=== PATIENT | female | born 1965 | race Caucasian/White ===

== ENCOUNTER 2022-04-20 07:21 | Outpatient (CLI) | payer BC, SELFPAY ==
[2022-04-20 07:49] LABS: Basophils Absolute Auto 0.09 K/uL (0.00-0.30); Basophils Percent Auto 1.2 % (0.0-3.0); Eosinophils Absolute Auto 0.21 K/uL (0.00-0.50); Eosinophils Percent Auto 2.8 % (0.0-7.0); Hematocrit 41.2 % (33.0-51.0); Hemoglobin* 13.7 gm/dL (12.0-16.0); Immature Granulocytes Abs Auto 0.01 K/uL (0.00-0.30); Immature Granulocytes Pct Auto 0.1 %; Lymphocytes Percent Auto 28.2 % (20-44); Mean Corpuscular HGB Conc 33 gm/dL (32-36); Mean Corpuscular Hemoglobin 31 pg (26-34); Mean Corpuscular Volume 94 fL (80-100); Monocytes Absolute Auto 0.53 K/UL (0.00-0.90); Neutrophils Absolute Auto 4.61 K/uL (1.7-7.0); Neutrophils Percent Auto 60.7 % (42.0-72.0); Platelet Count* 135 K/uL (140-440); RDW Coefficient of Variation % 13.9 % (11.5-15.5); Red Blood Count 4.37 m/uL (4.00-5.20); White Blood Count* 7.59 K/uL (4.50-11.00)
[2022-04-20 08:32] LABS: Slide Review Reflex No
== END 2022-04-20 07:22 | disposition home or self-care (01) ==
LOC: NFLDREF 07:23
PROVIDERS: PCP Family Medicine; Visit Provider Family Medicine
DX: D69.6 Thrombocytopenia, unspecified (principal); F41.9 Anxiety disorder, unspecified
CPT/HCPCS: 84443; 85025

== ENCOUNTER 2022-05-25 14:09 | Outpatient (CLI) | payer BC, SELFPAY ==
--- OUTSIDE RECORDS SUMMARY | 2022-05-25 14:12 | XMS_ITS | Clinical Summary ---
:1965 Author Organization [employer] [address] [employer] Organization [facility] [place] [address] Care Team Providers Name Role Phone Satish Linrudy Primary Care Provider Unavailable Allergies Active Allergy Reactions Severity Noted Date Comments Bee Pollen Anaphylaxis uses mounika kit Phenobarbital Other - Describe In Comment 10/04/2018 Almost as a baby Field Medications Medication Sig Dispensed Refills Start Date End Date Status EPINEPHrine Inject 0.3 mg 2 Each 0 05/25/2017 Act alida (EPIPEN) 0.3 mg/0.3 intramuscular one mL time if needed for injectionIndication Allergic Reaction. s: Bee sting allergy busPIRone (BUSPAR) Take 1 tablet by 60 tablet 2 06/29/2018 Active 10 mg mouth 2 times daily. tabletIndications: Will call when needs Anxiety this. Note dose change busPIRone (BUSPAR) TK 1 T PO BID 3 08/09/2018 Active 5 mg tablet Active Problems No known active problems Encounters Date Type Specialty Care Team Description 04/23/2022 Lab Requisition Kathy Polk MD from Last 3 Months Immunizations Name Administration Dates Next Due Influenza, IIV3 (Age >=3 years) 05/03/2012, 04/30/2011, 11/2009 Influenza, IIV4 05/20/2016, 05/14/2015, 05/02/2014 Influenza,LAIV4 Live Intranasal (Flumist) 05/04/2013 Tdap 01/22/2009 Zoster (Zostavax-ZVL, live) 05/14/2015 Family History Medical History Relation Name Comments Cancer Father several melanoma s removed Cancer-breast Maternal Grandmother older Diabetes Mother Melanoma Other nephew paternal side Cancer-breast Sister diagnosed close to age 50 Relation Name Status Comments Father (Age 91) Maternal Grandmother Mother Other nephew Alive Sister Social History Tobacco Use Types Packs/Day Years Used Date Former Smoker Quit: 07/26/19 06 Smokeless Tobacco: Never Used Tobacco Cessation: Counseling Given: Yes Comments: quit in 2005 Alcohol Use Standard Drinks/Week Comments Yes 0 (1 standard drink = 0.6 oz pure alcoho l) one glass of red wine daily Alcohol Habits Answer Date Recorded How often do you have a drink containing Not asked alcohol? How many drinks containing alcohol do you Not asked have on a typical day when you are drinking? How often do you have six or more drinks on Not asked one occasion? 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 Respiratory Rate - - Oxygen Saturation 96% 10/04/2018 3:35 PM CDT Inhaled Oxygen Concentration - - Weight 68 kg (150 lb) 10/04/2018 3:35 PM CDT Height 169.5 cm (5' 6.73) 09/19/2018 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 Body Mass Index 23.68 09/19/2018 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 Plan of Treatment Health Maintenance Due Date Last Done Comments COVID-19 vaccine series (#1) 1965 Zoster (shingles) series for age 1207/09/2015 05/14/2015 50+ (2 of 3) Tetanus booster 01/22/2019 01/22/2009 Depression screening for age 12+ 05/31/2019 05/31/2018, 12/2017, 05/31/2018, Additional history exists Mammogram for age 45-75 05/31/2019 05/31/2018, 05/25/2017, 05/14/2015, Additional history exists BMI (ht and wt on same day) for 09/19/2019 09/19/2018, 08/26, age 18+ 09/05/2018, Additional history exists Influenza for age 50-64 03/26/2022 05/20/2016, 05/14/2015, 05/02/2014, Additional history exists Lipids for age 45-75 05/31/2023 05/31/2018, 05/25/2017, 05/22/2016, Additional history exists Pap test for age 21-65 04/23/2025 04/23/2022, 04/23/2022, 05/25/2017, Additional history exists Colonoscopy through age 75 06/03/2025 06/03/2015, 5 Tdap Completed 01/22/2009 Hepatitis C screening for age Completed 05/18/2015 18-79 Procedures Procedure Name Priority Date/Time Associated Diagnosis Comme nts LAB TRACKING EVENT Routine 04/23/2022 8:11 AM CDT AUTOMOTIVE ELECTRICAL FITTER THIN PREP PAP Routine 04/23/2022 8:11 AM Resu lts for this SCREEN IMAGED CDT procedure are in the results section. HPV THIN PREP Routine 04/23/2022 8:11 AM Results for this CDT procedure are i n the results section. from Last 3 Months Results LAB TRACKING EVENT (04/23/2022 8:11 AM CDT) Specimen Anatomical Collection Method Collection Time Receive d Time (Source) Location / / Volume Laterality Other (Other) Client Collect / 04/23/2022 8:11 AM 03/27 7:49 Unknown CDT PM CDT Kathy Polk MD LAB BILL ONLY Performing Organization Address City/State/ZIP Code Phon e Number [facility] [address] [place] [address] LABORATORY-CENTRAL 2000 LABORATORY AUTOMOTIVE ELECTRICAL FITTER THIN PREP PAP SCREEN IMAGED (04/23/2022 8:11 AM CDT) Component Value Ref Test Analysis Performed At [facility] Range Method Time Signature Case Report Gynecologic Cytology Report ? Case: [id number] ? 05/12/2022 PAWEL Authorizing Provider: ??Kathy Winslow MD ??Collected: ? 04/23/2022 0811 ? 2:13 PM HEALTH Ordering Location: ? [facility] CENTRAL LAB ?Received: ?04/24/2022 0837 ? CDT [place] BORATORY-C First Screen: ? Cassandra, Leydi ? ENTRAL Rescreen: ?Malini Cantu ? LABORATORY Specimen: ?AUTOMOTIVE ELECTRICAL FITTER ThinPrep Vial Screening, Cervical/Vaginal ? INTERPRETATI NEGATIVE FOR (none) 05/12/2022 [facility] Monserrat ctronically ON/RESULT INTRAEPITHELIAL 2:13 PM HEALTH sign ed by EULALIA Cantu OR CDT LABORATORY-C Malini on MALIGNANCY (NIL) ENTRAL at LABORATORY 2:13 PM SPECIMEN Satisfactory for evaluation 05/12/2022 A LLINA ADEQUACY Endocervical component present 2:13 PM HEALTH Scant cellularity CDT LABORATORY-C ENTRAL LABORATORY HPV REQUEST HPV and PAP 05/12/2022 [facility] 2:13 PM HEALTH CDT LABORATORY-C ENTRAL LABORATORY Date of LMP 05/12/2022 [facility] 2:13 PM HEALTH CDT LABORATORY-C ENTRAL LABORATORY Comment: Post menopause Last Pap Result NIL 05/12/2022 2:13 PM [facility] A [facility] CDT LABORATORY-CENTRAL LABORATORY Abnormal Pap or [place] No 05/12/2022 2:13 PM [facility] Bx in last 5 years CDT LABORATORY- CENTRAL LABORATORY Menstrual Status Postmenopausal 05/12/2022 2:13 PM [facility] Additional 05/12/2022 2:13 PM [facility] Information T LABORATORY-CENTRAL LABORATORY Comment: Interpreted at [facility], Central Laboratory - [address], [place] [address] Automated Review Successful 05/12/2022 2:13 PM CDT [facility] LABORATORY-CENTRAL L ABORATORY Comment: Specimen processed successfully by automated physician vice president device, ThinPrep Imaging System, [employer] ANCILLARY TESTING HPV Ordered, 05/12/2022 2:13 PM [facility] AUTOMOTIVE ELECTRICAL FITTER Please see T LABORATORY-CENTRAL separate report LABORATORY Note The pap test is a 05/12/2022 2:13 PM [facility] screening T LABORATORY-CENTRAL technique, not a LABORATORY diagnostic procedure. It is used primarily to screen for squamous cancers and precursor lesions. Published studies have shown that it is subject to both false negative and false positive results. The pap test should not be used as the sole means to diagnose or exclude pre-malignant and malignant lesions. Specimen Anatomical Collection Method Collection Time Receive d Time (Source) Location / / Volume Laterality Other 04/23/2022 8:11 AM 2 8:37 (Cervical/Vagina CDT AM CDT l) Kathy Polk MD PATHOLOGY/CYTOLOGY Performing Organization Address City/State/ZIP Code Phon e Number [facility] [address] [place] [address] LABORATORY-CENTRAL 2000 LABORATORY HPV HIGH RISK (04/23/2022 8:11 AM CDT) Analysis Performed At Patho logist Time Signature TYPE 16 Negative Negative 04/27/2022 [facility] 3:15 PM CDT LABORATORY-REJI TRAL LABORATORY TYPE 18 Negative Negative 04/27/2022 [facility] 3:15 PM CDT LABORATORY-REJI TRAL LABORATORY OTHER HIGH Negative Negative 04/27/2022 [facility] RISK TYPES 3:15 PM CDT LABORATORY-REJI TRAL LABORATORY Specimen Anatomical Collection Method Collection Time Receive d Time (Source) Location / / Volume Laterality Other 04/23/2022 8:11 AM 2 8:37 (Cervical/Vagina CDT AM CDT l) Narrative [facility] LABORATORY-CENTRAL LABORAT ORY - 04/27/2022 3:15 PM CDT HPV types 16, 18, 31, 33, 35, 39, 45, 51, 52, 56, 58, 59, 66 and 68 DNA were undetectable or below the pre-set threshold. Methodology: Sánchez Henrik 4800 HPV Test Kathy Polk MD MICROBIOLOGY Performing Organization Address City/State/ZIP Code Phon e Number PAWEL [facility] [address] [place] [address] LABORATORY-CENTRAL 2000 LABORATORY from Last 3 Months Insurance Payer Benefit Plan / Subscriber ID Effective Dates Phone Addre ss Type Group MOT[employer] VE[employer]O [id number] 2017-Presen [address] [place] [address] WC WORKERS WC TRAVELERS [id number] 2020-Presen [address] [place] [address] BLUE CROSS BLUE CROSS OF [id number] 2015-Prese [address] [address] [place] [address] ([address]) [place] [phone] [employer] RUFF N (Work) [id number] [address] Motor Vehicle Self [address] ([address]) [place] [phone] [employer] (Work) [id number] [address] [employer] Self [address] [phone] [employer] [place]FF [place] (Work) [id number] Care Teams Global Project Manager Relationship Specialty Start Date End Date Pawel Lin PCP - General 09/05/18
--- NOTE | 2022-05-25 14:40 | CRLHL7_ITS ---
For Patients: As a result of the Cures Act, medical imaging exams and procedure reports are released immediately into your electronic medical record. You may view this report before your referring provider. If you have questions, please contact your health care provider. BILATERAL SCREENING MAMMOGRAM WITH COMPUTER-AIDED DETECTION AND TOMOSYNTHESIS TECHNIQUE: CC and MLO views were obtained. These mammographic images have been obtained using full-field digital technique. These mammographic images were interpreted with the benefit of computer-aided detection. Breast Tomosynthesis was used in this interpretation. COMPARISON FILM: 05/02/21, 08/01/19, 05/31/18. FINDINGS: There are scattered areas of fibroglandular density IMPRESSION: There is no radiographic evidence for malignancy. ASSESSMENT: BI-RADS Category 1: Negative RECOMMENDATION: Routine screening mammogram in 1 year. A lay language report of this examination will be provided to the patient. Erasto Gonzalez M.D. Diagnostic Radiologist [email or web address] GUANAKO/albert / be/Dictated by: Erasto Gonzalez MD @ 05/26/2022 8:50:00 AM (Electronically Signed)
== END 2022-05-25 14:10 | disposition home or self-care (01) ==
LOC: MAMMO 14:10
PROVIDERS: PCP Family Medicine; Visit Provider Family Medicine
DX: Z12.31 Encounter for screening mammogram for malignant neoplasm of breast (principal)
CPT/HCPCS: 77063; 77067

== ENCOUNTER 2023-04-22 07:35 | Outpatient (CLI) | payer BC, SELFPAY | END 2023-04-22 07:36 | disposition home or self-care (01) | LOC: NFLDREF 04-23 09:50 | PROVIDERS: PCP Family Medicine; Referring Provider Family Medicine; Visit Provider Family Medicine | DX: D69.6 Thrombocytopenia, unspecified (principal); Z13.6 Encounter for screening for cardiovascular disorders; Z13.1 Encounter for screening for diabetes mellitus | CPT/HCPCS: 80061; 82947 ==

== ENCOUNTER 2023-05-03 15:16 | Outpatient (CLI) | payer BC, SELFPAY ==
--- NOTE | 2023-05-03 15:00 | CRLHL7_ITS ---
For Patients: As a result of the Century Cures Act, medical imaging exams and procedure reports are released immediately into your electronic medical record. You may view this report before your referring provider. If you have questions, please contact your health care provider. INDICATION: THROMBOCYTOPENIA COMPARISON: none TECHNIQUE: Real time baugh scale imaging was performed of the spleen. FINDINGS: The spleen is normal in size and measures 7.9 x 2.6 cm. No splenic lesion or left upper quadrant ascites. IMPRESSION: No splenomegaly. Dictated by Erasto Gonzalez MD @ 05/05/2023 6:45:53 AM (Electronically Signed)
== END 2023-05-03 15:17 | disposition home or self-care (01) ==
LOC: US 15:17
PROVIDERS: PCP Family Medicine; Visit Provider Family Medicine
DX: D69.6 Thrombocytopenia, unspecified (principal)
CPT/HCPCS: 76705

== ENCOUNTER 2023-05-17 15:12 | Outpatient (CLI) | payer BC, SELFPAY ==
--- NOTE | 2023-05-17 15:00 | CRLHL7_ITS ---
For Patients: As a result of the Century Cures Act, medical imaging exams and procedure reports are released immediately into your electronic medical record. You may view this report before your referring provider. If you have questions, please contact your health care provider. INDICATION: THROMBOCYTOPENIA COMPARISON: 05/03/2023 TECHNIQUE: Real time baugh scale imaging and color Doppler analysis was performed of the right upper quadrant. FINDINGS: The patient`s liver is of normal size and has uniform echogenicity. There is a normal appearance of the hepatic IVC and proximal abdominal aorta. There is no evidence of ascites. The gallbladder is of normal size and there is an adherent echogenic focus associated with the nondependent gallbladder wall measuring 2 x 2 millimeters. The gallbladder wall measures 1.3 mm in thickness. The common bile duct is of normal size and measures 3.7 mm in diameter at the level of the kerwin hepatis. The visualized pancreas appears normal. There is no evidence of a stone or hydronephrosis within the right kidney. The right kidney measures 10.8 cm in length. IMPRESSION: 2 millimeter gallbladder polyp. Remainder normal. Dictated by Erasto Gonzalez MD @ 05/18/2023 9:00:12 AM (Electronically Signed)
== END 2023-05-17 15:13 | disposition home or self-care (01) ==
LOC: US 15:12
PROVIDERS: PCP Family Medicine; Visit Provider Internal Medicine Hematology & Oncology
DX: D69.6 Thrombocytopenia, unspecified (principal)
CPT/HCPCS: 76705

== ENCOUNTER 2023-05-26 15:10 | Outpatient (CLI) | payer BC, SELFPAY ==
--- NOTE | 2023-05-26 15:20 | CRLHL7_ITS ---
For Patients: As a result of the Century Cures Act, medical imaging exams and procedure reports are released immediately into your electronic medical record. You may view this report before your referring provider. If you have questions, please contact your health care provider. BILATERAL SCREENING MAMMOGRAM WITH COMPUTER-AIDED DETECTION AND TOMOSYNTHESIS TECHNIQUE: CC and MLO views were obtained. These mammographic images have been obtained using full-field digital technique. These mammographic images were interpreted with the benefit of computer-aided detection. Breast Tomosynthesis was used in this interpretation. COMPARISON FILM: 05/25/22, 05/02/21, 08/01/19. FINDINGS: There are scattered areas of fibroglandular density IMPRESSION: There is no radiographic evidence for malignancy. ASSESSMENT: BI-RADS Category 1: Negative RECOMMENDATION: Routine screening mammogram in 1 year. A lay language report of this examination will be provided to the patient. Erasto Gonzalez M.D. Diagnostic Radiologist [email or web address] JESSICA/Dictated by: Erasto Gonzalez MD @ 05/27/2023 11:53:00 AM (Electronically Signed)
== END 2023-05-26 15:11 | disposition home or self-care (01) ==
LOC: MAMMO 15:10
PROVIDERS: PCP Family Medicine; Visit Provider Family Medicine
DX: Z12.31 Encounter for screening mammogram for malignant neoplasm of breast (principal)
CPT/HCPCS: 77063; 77067

== ENCOUNTER 2023-06-15 07:43 | Outpatient (CLI) | payer BC, SELFPAY ==
[2023-06-15 07:56] VITALS: BP 152/70; PULSE 72; RESP 16; TEMP 36.9; O2SAT 98; BMI 23.2
[2023-06-15 09:05] VITALS: BP 116/64; PULSE 64; RESP 16; O2SAT 98
[2023-06-15 09:08] LABS: Basophils Absolute Auto 0.05 K/uL (0.00-0.30); Basophils Percent Auto 0.9 % (0.0-3.0); Eosinophils Absolute Auto 0.19 K/uL (0.00-0.50); Eosinophils Percent Auto 3.4 % (0.0-7.0); Hematocrit 44.2 % (33.0-51.0); Hemoglobin* 14.5 gm/dL (12.0-16.0); Immature Granulocytes Abs Auto 0.01 K/uL (0.00-0.30); Immature Granulocytes Pct Auto 0.2 %; Immature Reticulocyte Fraction 4.8 % (3.0-15.9); Lymphocytes Absolute Auto 1.81 K/uL (0.90-2.90); Mean Corpuscular HGB Conc 33 gm/dL (32-36); Mean Corpuscular Hemoglobin 31 pg (26-34); Mean Corpuscular Volume 96 fL (80-100); Monocytes Percent Auto 8.5 % (0.0-11.0); Neutrophils Absolute Auto 3.12 K/uL (1.7-7.0); Platelet Count* 84 K/uL (140-440); RDW Coefficient of Variation % 13.1 % (11.5-15.5); Red Blood Count 4.63 m/uL (4.00-5.20); Reticulocyte Hemoglobin Equivi 31.1 pg (29.0-35.0); Reticulocytes Absolute 0.05 # (0.03-0.08); White Blood Count* 5.66 K/uL (4.50-11.00)
--- NOTE | 2023-06-15 09:12 | W.ANESCHARGE ---
Anesthesia Charges Start Date/Time Anesthesia Start Date: 06/15/23 Anesthesia Start Time: 08:42 Stop Date/Time Anesthesia Stop Date: 06/15/23 Anesthesia Stop Time: 09:03
[2023-06-15 09:15] VITALS: BP 136/72; PULSE 61; RESP 16; O2SAT 99
[2023-06-15 09:25] VITALS: BP 132/78; PULSE 58; RESP 16; O2SAT 99
[2023-06-15 10:27] LABS: Slide Review Reflex Yes
[2023-06-15 10:28] LABS: Slide Review Acceptable Review (Acceptable)
--- NOTE | 2023-06-15 11:43 | W.ANESCHARGE ---
Anesthesia Charges Start Date/Time Anesthesia Start Date: 06/15/23 Anesthesia Start Time: 08:42 Stop Date/Time Anesthesia Stop Date: 06/15/23 Anesthesia Stop Time: 09:03
== END 2023-06-15 09:45 | disposition home or self-care (01) ==
LOC: OP CLINIC 07:44
PROVIDERS: PCP Family Medicine; Visit Provider Internal Medicine Hematology & Oncology
DX: D69.6 Thrombocytopenia, unspecified (principal)
CPT/HCPCS: 01112; 36415; 38222; 85025; 85045; 88305; 88311; 88313; 88342; 88360; J1644; J2001; J2704

== ENCOUNTER 2023-06-28 09:30 | Outpatient (RCR) | payer BC, SELFPAY ==
[2023-05-11 14:54] LABS: Albumin* 4.7 g/dL (3.3-5.0)
[2023-05-11 14:57] LABS: Alanine Aminotransferase* 15 U/L (4-35); Alkaline Phosphatase* 54 U/L (40-150); Aspartate Amino Transferase* 38 U/L (12-35); Bilirubin Total* 0.9 mg/dL (0.1-1.5); Total Protein* 7.7 g/dL (6.0-8.3)
[2023-05-11 15:46] LABS: Vitamin B12* 789 pg/mL (243-894)
[2023-05-11 15:48] LABS: HIV 1/2/P24 Combo Screen* Negative (Negative)
[2023-05-11 15:58] LABS: Hepatitis C Virus Antibody* Negative (Negative)
[2023-05-13 22:52] LABS: Folate, Serum >22.3 ng/mL (>=5.9)
[2023-06-08 10:41] LABS: Platelet Count* 74 K/uL (140-440)
--- NOTE | 2023-06-09 14:37 | ONC.NURNOTE ---
Bone marrow biopsy form faxed to lab and endoscopy.
[2023-06-10 00:53] LABS: Copper, Serum/Plasma 113.2 ug/dL (80.0-155.0)
--- NOTE | 2023-06-10 09:37 | PC.NURSE ---
Pt called today to request a prescription for a sleep aid as she is not sleeping well due to anxiety about her upcoming bone marrow biopsy. RN called back and instructed pt to call PCP, she will do so. Supportive listening provided.
[2023-06-10 12:38] LABS: Anti-Nuclear Ab(ANA)IgG ELISA None Detected (None Detected)
[2023-06-10 12:55] LABS: Rheumatoid Factor <10 IU/mL (0-14)
[2023-06-10 15:00] LABS: dRVVT Screen 35 sec (33-44)
[2023-06-28 12:32] LABS: H pylori Ag Stool* Negative (Negative)
== END 2023-11-07 23:59 | disposition home or self-care (01) ==
LOC: CCIC 09:30
PROVIDERS: PCP Family Medicine; Referring Provider Family Medicine; Visit Provider Internal Medicine Hematology & Oncology
DX: D69.6 Thrombocytopenia, unspecified (principal)
CPT/HCPCS: 36415; 80076; 82525; 82607; 82746; 85049; 85610; 85613; 85730; 86039; 86431; 86703; 86803; 87338; 99202; 99204; 99212; 99213; 99214

== ENCOUNTER 2025-03-27 07:45 | Outpatient (CLI) | payer OTHER, SELFPAY | END 2025-03-27 07:46 | disposition home or self-care (01) | PROVIDERS: PCP Internal Medicine; Referring Provider Internal Medicine; Visit Provider Internal Medicine | DX: R03.0 Elevated blood-pressure reading, without diagnosis of hypertension (principal); Z13.6 Encounter for screening for cardiovascular disorders | CPT/HCPCS: 80053; 80061 ==

== ENCOUNTER 2025-04-18 08:39 | Outpatient (CLI) | payer OTHER, SELFPAY ==
--- NOTE | 2025-04-18 08:45 | CRLHL7_ITS ---
For Patients: As a result of the Century Cures Act, medical imaging exams and procedure reports are released immediately into your electronic medical record. You may view this report before your referring provider. If you have questions, please contact your health care provider. INDICATION: BILATERAL SCREENING MAMMMOGRAM, ASYMPTOMATIC 60 Y/O FEMALE COMPARISON: 05/26/2023, 05/25/2022, 05/02/2021 TECHNIQUE: Digital mammogram in CC and MLO projections including computer-aided detection (CAD) and tomosynthesis. BREAST COMPOSITION: There are scattered areas of fibroglandular density. FINDINGS: No suspicious findings. ASSESSMENT: BI-RADS 1 Negative RECOMMENDATION: Annual screening mammogram. A lay language report of this examination will be provided to the patient. Dictated by: Frannie Cruz MD @ 04/19/2025 20:47:24 (Electronically Signed)
== END 2025-04-18 08:40 | disposition home or self-care (01) ==
LOC: MAMMO 08:40
PROVIDERS: PCP Internal Medicine; Visit Provider Internal Medicine
DX: Z12.31 Encounter for screening mammogram for malignant neoplasm of breast (principal)
CPT/HCPCS: 77063; 77067